=== PATIENT | female | born 1995 | race Caucasian/White ===

== ENCOUNTER 2025-10-11 08:50 | Day surgery (SDC) | payer MEDICAID, SELFPAY ==
[2025-10-10 09:39] VITALS: BMI 30.7
--- NOTE | 2025-10-10 09:51 | EKG_ITS ---
[facility] Test Date: 2025-10-10 Pat Name: KATHERINE ANDREW Department: Room: - Gender: Female Pharmacy Delivery Driver: JUANA VERDUGOB: 1995 Requested By: Zacarias Hensley Order Number: [id number] Reading MD: Zacarias Hensley Measurements Intervals [place] Rate: 63 P: 69 [place]: 187 QRS: 72 QRSD: 86 T: 55 QT: 394 QTc: 404 Interpretive Statements SINUS RHYTHM No previous ECG available for comparison /store/S0/[id number]
[2025-10-10 10:55] LABS: Basophils # (Auto) 0.0 Thou/mm3 (0.0-0.2); Basophils % (Auto) 0 % (0-2.5); Eosinophils # (Auto) 0.1 Thou/mm3 (0.0-0.5); Eosinophils % (Auto) 1 % (0-10); Hematocrit 40.3 % (36.0-46.0); Hemoglobin 13.8 g/dL (12.0-16.0); Immature Granulocytes Auto 0.04 Thou/mm3 (0.00-0.00); Lymphocytes # (Auto) 2.7 Thou/mm3 (1.0-4.8); Lymphocytes % (Auto) 28 % (10-50); Mean Corpuscular HGB Conc 34.2 g/dl (31.0-37.0); Mean Corpuscular Hemoglobin 29.7 pg (25.0-35.0); Mean Corpuscular Volume 87 fL (80-100); Monocytes # (Auto) 0.7 Thou/mm3 (0.0-0.8); Monocytes % (Auto) 7 % (0-12); Neutrophils # (Auto) 6.1 Thou/mm3 (1.8-7.7); Neutrophils % (Auto) 63 % (37-80); Nucleated Red Blood Cell # 0.00 Thou/mm3 (0.00-0.00); Nucleated Red Blood Cell % 0 /100 WBC (0); Platelet Count 270 Thou/mm3 (140-440); RDW Standard Deviation 40.2 fL (36.4-46.3); Red Blood Count 4.65 Miln/mm3 (4.00-5.20); White Blood Count 9.7 Thou/mm3 (3.6-11.0)
[2025-10-10 11:14] LABS: INR 1.0 (0.9-1.3); Partial Thromboplastin Time 27.1 Seconds (22.0-36.0); Prothrombin Time 11.0 Seconds (9.0-12.2)
[2025-10-10 11:16] LABS: Alanine Aminotransferase 17 U/L (10-49); Albumin, Serum 4.7 gm/dL (3.5-5.0); Albumin/Globulin Ratio 2.2 (1.2-2.2); Alkaline Phosphatase 47 U/L (46-116); Anion Gap 8 (7-16); Aspartate Amino Transferase < 8 U/L (0-34); BUN/Creatinine Ratio 9 Ratio (12-20); Bilirubin,Total 0.5 mg/dL (0.3-1.2); Blood Urea Nitrogen 6 mg/dL (9-23); Calcium 9.5 mg/dL (8.3-10.6); Calcium (Corrected) 9.5 mg/dL (8.5-10.1); Carbon Dioxide 24.9 mMol/L (20.0-31.0); Chloride 109 mMol/L (98-107); Creatinine (Component) 0.7 mg/dL (0.6-1.3); Estimated Creatinine Clearance 114.4 mL/min (>60); Globulin 2.1 gm/dL (2.3-3.5); Glucose 90 mg/dL (74-106); Osmolality,Calculated 280 (275-295); Potassium 3.7 mMol/L (3.4-5.1); Sodium 142 mMol/L (136-145); Total Protein 6.8 gm/dL (5.7-8.2); eGFR > 60 See Note
[2025-10-11] VITALS (8 sets, daily range): BP systolic 112–125; BP diastolic 62–78; PULSE 51–85; RESP 13–23; TEMP 36.2–36.6; O2SAT 97–100; BMI 30.4
--- NOTE | 2025-10-11 09:25 | SUR.PREOP ---
pt states she has episodes of passing out with seizures up to 2 times per week with last episode approximately one month ago for which she went to the ER for but has not seen Neurology, pt also states her heart rate fluctuates from 30-180 bpm and she has been referred to a [employer], Dr Ramirez, whom she had an initial appointment with but no testing at this point. pt states [employer] is aware of these episodes and surgery today. Called Dr Oscar office for notes, office tech said pt has had one initial appointment and will fax notes but pt has cancelled multiple appointments. Will inform Anesthesia and Dr Dennison.
--- NOTE | 2025-10-11 10:30 | CHAP ---
Visited with patient and gave encouragement and prayer before procedure.
--- NOTE | 2025-10-11 12:40 | PD.SUROPNT ---
Date of Procedure 10/11/25 Pre Op Diagnosis Symptomatic ventral and umbilical hernia Post Op Diagnosis Same Procedure Repair of the ventral hernia with primary closure Repair of the umbilical hernia with primary closure. Findings Patient had 2 defects 1 about 5 cm above the umbilicus through which herniation occurred containing mostly fatty tissue. The wound at the umbilicus at the upper portion also had only herniation of the fat. Procedure Description Out the patient was brought to the operating room LMA anesthesia was given. Abdomen was prepped with ChloraPrep solution and draped in a sterile manner. Timeout was performed. The made a midline incision for about 5 cm in length and dissected the subcutaneous tissue. I was able to see the hernia easily in the upper portion which was dissected away from surrounding tissue. And I clamped the hernial contents and suture-ligated with a 2-0 chromic. Then it was reduced and the defect was a little more than 1 cm in a transverse fashion. There was not enough space to apply any mesh. I closed it with 2 interrupted sutures of 2-0 Prolene with the knots inside. Then attention was turned onto the supraumbilical region where there was another hernia similarly which was dissected out and the edges were defined. This again had only preperitoneal fat which was clamped and tied. After reducing this I placed 2-0 Prolene sutures 2 of them and the subcutaneous was closed with 3-0 plain and 3-0 chromic to obliterate the space. Skin was then closed with 4-0 Monocryl subcuticular stitch after injecting half percent Marcaine for analgesia. Dressing was applied with Adaptic and 4 x 4 gauze and patient tolerated the procedure well. Anesthesia other (LMA general) Pathology / specimen None Estimated Blood Loss 10 Surgeon Lela Dennison MD Surgical Staff Operation Date: 10/11/25 12:15 Case Staff Anesthesiologist: Kalyan Eaton RN First Assistant: Emily Cooney
--- NOTE | 2025-10-11 12:50 | SUR.PHASEI ---
1225: Pt received in [facility] via gurney. Report from Mac MONTANO and Dr. Bello. Pt obtunded. Oral airway in place. Resp even, unlabored. VS stable. Dressing to abdomen dry, clean, intact. 1232: Oral airway dc'd. Resp even, unlabored.
--- NOTE | 2025-10-11 13:02 | SUR.PHASEI ---
1250: Pt resting with no complaints voiced. Resp even, unlabored. VS stable. Surgical site dressing remains dry, clean, intact.
--- NOTE | 2025-10-11 14:36 | SUR.PHASEII ---
1320: Pt more awake, alert. VS stable. Dressing remains dry, clean, intact. Sitting up tolerating po fluids with no difficulty swallowing and no n/v. 1338: Pt fully awake, oriented x3. Pt dressed and assisted to transport chair. Ambulation steady. Pt and aunt stated understanding of discharge instructions. Pt discharged from [facility] in stable condition.
== END 2025-10-11 13:38 | disposition home or self-care (01) ==
PROVIDERS: PCP Family Medicine; Referring Provider Surgery; Visit Provider Surgery
PROC: (CPT 49591; 2025-10-11 12:00)
DX: K42.9 Umbilical hernia without obstruction or gangrene (principal); K43.9 Ventral hernia without obstruction or gangrene; Z01.810 Encounter for preprocedural cardiovascular examination; F41.8 Other specified anxiety disorders
CPT/HCPCS: 49591; 36415; 80053; 84703; 85025; 85610; 85730; 93005; A4649; J0131; J1100; J1885; J2250; J2405; J2704; J3010; J3490